=== PATIENT | female | born 1990 | race Native Hawaiian/Other Pacific Islander ===

== ENCOUNTER 2016-03-13 19:41 | Inpatient (IN) | payer MEDICARE, OTHER ==
[2016-03-13] MEDS ORDERED: LIDOCAINE 1% (PF) 10 MG/ML (30 ML SDV) SQ PRN (21:17)
[2016-03-13] MEDS ORDERED: CARBOPROST TROMETHAMINE 250 MCG/ML 1 ML AMP IM PRN (21:17)
[2016-03-13] MEDS ORDERED: METHYLERGONOVINE 0.2 MG/ML 1 ML AMP IM PRN (21:17)
[2016-03-13] MEDS ORDERED: TERBUTALINE 1 MG/ML VIAL SQ PRN (21:17)
[2016-03-13] MEDS ORDERED: OXYTOCIN 10 UNIT/ML 1 ML VIAL IM PRN (21:17)
[2016-03-13] MEDS: LACTATED RINGERS 1,000 ML IV SCH (21:59)
[2016-03-13] MEDS: BUTORPHANOL 1 MG/ML 1 ML VIAL IV PRN (22:04)
[2016-03-13 22:17] VITALS: BMI 48.6
[2016-03-13 22:24] LABS: Basophils # (A) 0.1 k/uL (0-0.2); Basophils % (A) 1 %; CHCM 35.1; Eosinophils # (A) 0.2 k/uL (0-0.7); Eosinophils % (A) 1 %; HCT 41.3 % (34.0-46.0); HDW 3.08; HGB 13.8 gm/dL (11.4-16.0); Luc # (Auto) 0.09; Luc % (Auto) 1; Lymphocytes # (A) 1.9 k/uL (1.0-4.8); Lymphocytes % (A) 14 %; MCH 28.7 pg (25.0-35.0); MCHC 33.4 g/dL (31.0-37.0); MCV 85.9 fL (80.0-100.0); Mean Platelet Volume 8.3; Monocytes # (A) 0.6 k/uL (0-1.0); Monocytes % (A) 5 %; Neutrophils # (A) 10.8 k/uL (1.3-7.7); Neutrophils % (A) 80 %; RBC 4.81 m/uL (3.80-5.40); WBC 13.6 k/uL (3.8-10.6); WBC (Perox) 13.63
[2016-03-14] MEDS: BUTORPHANOL 1 MG/ML 1 ML VIAL IV PRN ×3 (00:06→04:17)
[2016-03-14] MEDS: LACTATED RINGERS 1,000 ML IV SCH (04:16)
--- NOTE | 2016-03-14 05:34 | P.HPOB ---
History of Present Illness H&P Date: 03/14/16 Chief Complaint: Contractions This is a 25-year-old female 1 para 0 at 40 weeks and 5 days with an estimated date of confinement of 03/09/2016, who presented to labor and delivery complaining of contractions that began earlier in the evening and became stronger and more regular. She denied any rupture of membranes. care has been uncomplicated per patient. She has been seeing Dr. Hoffman for her care. labs: GC/chlamydia-negative HIV-nonreactive Blood type-O+ Antibody screen-negative Syphilis antibody-nonreactive Rubella-low positive Random glucose-84 Hepatitis B surface antigen-negative Hemoglobin-14.2 One hour Glucola-117 Group B streptococcus-negative Obstetrical history: This is her first Social history: She lives with her parents and she does have a learning disability. The father the baby is not involved. Review of Systems Gastrointestinal: Reports abdominal pain Genitourinary: Reports pelvic pain, Reports Past Medical History Additional Past Medical History / Comment(s): pt states hx of learning disability, pt father is legal guardian. Pt has hx of scoliosis History of Any Multi-Drug Resistant Organisms: None Reported Past Surgical History: No Surgical Hx Reported Past Anesthesia/Blood Transfusion Reactions: No Reported Reaction Past Psychological History: No Psychological Hx Reported Smoking Status: Current every day smoker Past Alcohol Use History: None Reported Past Drug Use History: None Reported Additional Drug Use History / Comment(s): pt states smokes 6-7 cigaretts per day - Past Family History Father Family Medical History: Diabetes Mellitus, Hypertension Mother Family Medical History: Cancer Medications and Allergies Home Medications Medication Instructions Recorded Confirmed Type Multivitamin [Children's 1 tab PO DAILY 10/18/15 03/13/16 History Multivitamins] Allergies Allergy/AdvReac Type Severity Reaction Status Date / Time No Known Allergies Allergy Verified 03/13/16 20:06 Exam Osteopathic Statement: *. No significant issues noted on an osteopathic structural exam other than those noted in the History and Physical/Consult. - Vital Signs Vital signs: Vital Signs Temp Pulse Resp BP 03/13/16 21:11 97.1 F L 93 18 139/82 Intake and Output 03/13/16 03/13/16 03/14/16 14:59 22:59 06:59 Intake Total 50 Balance 50 Intake: IV 50 Lactated Ringers 1,000 ml 50 @ 125 mls/hr IV .Q8H [facility] Rx#:[id number] Other: Weight 124.738 kg Patient Weight 03/14/16 06:59 Weight 124.738 kg HEENT: Within normal limits Heart: Regular rate and rhythm Lungs: Clear to auscultation bilaterally Abdomen: Cervix: Initially was 2 cm/80%/-2 station. She did make change after one hour to 3 cm. heart tones: Reactive Contractions: Every 1-5 minutes Extremities: Negative Homans Results Result Diagrams: 03/13/16 22:00 Abnormal Lab Results - Last 24 Hours (Table) 03/13/16 Range/Units 22:00 WBC 13.6 H (3.8-10.6) k/uL Neutrophils # 10.8 H (1.3-7.7) k/uL Assessment and Plan (1) Post term over 40 weeks Status: Acute Plan: Admission for active labor. Stadol as needed for pain control. Patient declines epidural. Expectant management.
[2016-03-14] MEDS ORDERED: ACETAMINOPHEN TAB 325 MG TAB PO PRN (08:03)
[2016-03-14] MEDS ORDERED: LANOLIN CREAM 5 GM TUBE TOPICAL PRN (08:03)
[2016-03-14] MEDS ORDERED: ZOLPIDEM 5 MG TAB PO PRN (08:03)
[2016-03-14] MEDS ORDERED: HYDROCORTISONE 2.5% RECTAL CREAM 30 GM TUBE RECTAL PRN (08:03)
[2016-03-14] MEDS ORDERED: diphenhydrAMINE 50 MG CAP PO PRN (08:03)
[2016-03-14] MEDS ORDERED: Acetaminophen-Codeine 300-30mg TAB PO PRN (08:03)
[2016-03-14] MEDS ORDERED: diphenhydrAMINE 50 MG/ML 1 ML VIAL IVP PRN ×2 (08:03)
[2016-03-14] MEDS ORDERED: diphenhydrAMINE 25 MG CAP PO PRN (08:03)
[2016-03-14] MEDS ORDERED: WITCH HAZEL 1 EACH MED..PAD TOPICAL PRN (08:03)
[2016-03-14] MEDS ORDERED: SIMETHICONE 80 MG CHEWABLE PO PRN (08:03)
[2016-03-14] MEDS ORDERED: BENZOCAINE/MENTHOL SPRAY 1 GM/SPRAY AEROSOL TOPICAL PRN (08:03)
--- NOTE | 2016-03-14 08:14 | P.PROBDLV ---
Vaginal Delivery Note - . Vaginal Delivery Note: The patient progressed to complete dilation after artificial rupture membranes with clear fluid noted. She did receive several doses of Stadol while in labor. Once reaching complete dilation, she began pushing. Infant's head came to a crown and then delivered across the perineum with the body following shortly after. Nuchal cord 1 was reduced around the infant with delivery. Nose and mouth were bulb suctioned after delivery. was placed on mother' s abdomen. Cord was clamped and cut and infant was taken to warmer for evaluation. A viable male was noted with scores of 8 at 1 minute and 9 at 5 minutes and weight of 7 lbs. 4 oz. Placenta initially was not ready to separate and therefore inspection of the perineum revealed a second -degree perineal laceration. This area was anesthetized with 1% lidocaine and then sutured with 3-0 and 2-0 Vicryl suture in the usual multilayer fashion. Next after at least 20 minutes the placenta had not , despite uterine massage and gentle traction. A gloved hand was placed into the endometrial cavity and the placenta was manually removed. It was noted to be slightly adherent. It was removed initially and one large piece however there was still some membranes present. Another gloved hand was placed into the endometrial cavity and the membranes were pulled out and a fairly large piece. No further tissue was obtained. Uterus clamped down very well after oxytocin was given and uterine massage was carried out. Estimated blood loss is approximately 200 mL's.
[2016-03-14] MEDS ORDERED: MEASLES-MUMPS-RUBELLA VACC/PF 12,500 UNIT/0.5 ML VIAL SQ ONE (08:38)
[2016-03-14] MEDS: SENNOSIDES-DOCUSATE SODIUM 1 EACH TAB PO SCH ×2 (09:24→19:47)
[2016-03-14] MEDS: IBUPROFEN 600 MG TAB PO PRN ×3 (09:24→23:01)
[2016-03-14] MEDS: MULTIVITAMINS, PEDIATRIC 1 EACH CHEWABLE PO SCH (10:34)
[2016-03-14] MEDS: OXYTOCIN 30 UNITS/500 ML NS 30 UNIT in SALINE 1 500ML.BAG IV SCH ×2 (20:40→20:41)
[2016-03-15] MEDS: Acetaminophen-Codeine 300-30mg TAB PO PRN ×2 (05:03→10:24)
[2016-03-15] MEDS: SENNOSIDES-DOCUSATE SODIUM 1 EACH TAB PO SCH (07:38)
[2016-03-15] MEDS: MULTIVITAMINS, PEDIATRIC 1 EACH CHEWABLE PO SCH (08:22)
[2016-03-15 09:01] VITALS: BP 107/57; PULSE 140; RESP 48; TEMP 98.3
[2016-03-15 09:08] LABS: Basophils # (A) 0.1 k/uL (0-0.2); Basophils % (A) 0 %; CH 29.5; CHCM 33.8; Eosinophils # (A) 0.1 k/uL (0-0.7); Eosinophils % (A) 1 %; HCT 35.1 % (34.0-46.0); HDW 2.94; HGB 11.6 gm/dL (11.4-16.0); Luc # (Auto) 0.14; Luc % (Auto) 1; Lymphocytes # (A) 2.5 k/uL (1.0-4.8); Lymphocytes % (A) 17 %; MCH 28.9 pg (25.0-35.0); MCV 87.8 fL (80.0-100.0); Mean Platelet Volume 7.5; Monocytes # (A) 0.6 k/uL (0-1.0); Monocytes % (A) 4 %; Neutrophils % (A) 77 %; RBC 3.99 m/uL (3.80-5.40); RDW 14.2 % (11.5-15.5); WBC 14.4 k/uL (3.8-10.6); WBC (Perox) 15.29
--- NOTE | 2016-03-15 11:14 | P.DS ---
Providers Date of admission: 03/13/16 21:06 Expected date of discharge: 03/15/16 Attending physician: Yana Hoffman Primary care physician: Stated None - Discharge Diagnosis(es) (1) Post term over 40 weeks Current Visit: Yes Status: Acute Hospital Course: This is a 25-year-old female 1 para 0 at 40-5/7 weeks who presented for active labor. She underwent oxytocin augmentation of labor and artificial rupture membranes with clear fluid noted. She delivered vaginally a viable male on 03/14/2016 with scores of 8 at 1 minute and 9 at 5 minutes and weight of 7 lbs. 4 oz. Her course has been uncompensated. She is both breast and bottlefeeding. Lochia is decreasing. Vital signs are stable. Abdomen is soft with fundus firm and nontender. Extremities show negative Homans. Impression is status post vaginal delivery day #1. Plan is to discharge home today. She will be given prescriptions for ibuprofen and Tylenol 3. She will also be given a prescription for breast pump. She is advised to follow up with Dr. Hoffman in 6 weeks in the office. Routine instructions are given. She is advised to call the office if she has any further questions or concerns prior to her appointment time. Procedures: Oxytocin augmentation of labor Spontaneous vaginal delivery of a viable male on 03/14/2016 Patient Condition at Discharge: Stable Plan - Discharge Summary New Discharge Prescriptions: Acetaminophen-Codeine 300-30mg [Tylenol w/codeine #3] 1 each PO Q4HR PRN #30 tab PRN Reason: Mild Pain exceeding Tylenol Ibuprofen [Motrin] 600 mg PO Q6HR PRN #60 tab PRN Reason: Mild Pain Or Fever >= 100.5 Discharge Medication List Multivitamin [Children's Multivitamins] 1 tab PO DAILY 10/18/15 [History] Acetaminophen-Codeine 300-30mg [Tylenol w/codeine #3] 1 each PO Q4HR PRN #30 tab 03/15/16 [Rx] Ibuprofen [Motrin] 600 mg PO Q6HR PRN #60 tab 03/15/16 [Rx] Follow up Appointment(s)/Referral(s): Yana Hoffman DO [Doctor of Osteopathic Medicine] - 6 Weeks Activity/Diet/Wound Care/Special Instructions: Instructions 1. Do not begin any exercise program for 3 weeks. 2. Do not resume sexual relations for 3 weeks or longer if uncomfortable. 3. You may take tub baths or showers at any time. 4. You may use tampons if desired after 3 weeks. 5. Keep the area of episiotomy (stitches) clean and dry. 6. If you are not nursing, wear a good fitting, supportive bra during the day and limit fluid intake for at least 1 week to prevent breast engorgement. 7. Call the office, [phone], within the next week to make appointment for your 6 week checkup if it has not already been made. 8. Report any of the following occurrences to the doctor promptly: a. Heavy, excessive bleeding b. Chills, fever c. Burning or frequency of urination d. Pain or redness and breasts if nursing e. Increasing pain or swelling in episiotomy (stitches). In addition to the above instructions, the following additional should be followed: 1. No heavy lifting or straining (exercising) until after 6 week checkup. 2. Keep abdominal incision clean and dry: You may wear a dressing if more comfortable. 3. Make office appointment for 10 days after going home or as instructed by her doctor. Discharge Disposition: HOME SELF-CARE
== END 2016-03-15 12:20 | disposition home or self-care (01) | DRG 775 ==
LOC: FBPOP 19:41 → 4FBP 21:06
PROVIDERS: ADMIT Obstetrics & Gynecology; ATTEND Obstetrics & Gynecology
PROC: 10E0XZZ Delivery of Products of Conception, External Approach (ICD-10-PCS; principal; 2016-03-14)
PROC: 0KQM0ZZ Repair Perineum Muscle, Open Approach (ICD-10-PCS; 2016-03-14)
PROC: 10907ZC Drainage of Amniotic Fluid, Therapeutic from Products of Conception, Via Natural or Artificial Opening (ICD-10-PCS; 2016-03-14)
PROC: 3E0134Z Introduction of Serum, Toxoid and Vaccine into Subcutaneous Tissue, Percutaneous Approach (ICD-10-PCS; 2016-03-14)
DX: O70.1 Second degree perineal laceration during delivery (principal); Z37.0 Single live birth; M41.9 Scoliosis, unspecified; O26.893 Other specified pregnancy related conditions, third trimester; F17.210 Nicotine dependence, cigarettes, uncomplicated; O48.0 Post-term pregnancy; O99.344 Other mental disorders complicating childbirth; F81.9 Developmental disorder of scholastic skills, unspecified; O43.893 Other placental disorders, third trimester; O69.81X0 Labor and delivery complicated by cord around neck, without compression, not applicable or unspecified; O99.334 Smoking (tobacco) complicating childbirth; Z82.49 Family history of ischemic heart disease and other diseases of the circulatory system; Z83.3 Family history of diabetes mellitus; Z3A.40 40 weeks gestation of pregnancy; Z80.9 Family history of malignant neoplasm, unspecified; Z23 Encounter for immunization
CPT/HCPCS: 59025; 85025; 88307; 90707; 99213

== ENCOUNTER → 2017-06-29 | Outpatient (CLI) | payer MEDICARE, OTHER ==
[2017-06-29 10:36] LABS: HCT 39.8 % (34.0-46.0); HGB 13.2 gm/dL (11.4-16.0); MCH 28.7 pg (25.0-35.0); MCHC 33.3 g/dL (31.0-37.0); MCV 86.3 fL (80.0-100.0); Mean Platelet Volume 8.3; Platelet Count 234 k/uL (150-450); RBC 4.61 m/uL (3.80-5.40); RDW 13.5 % (11.5-15.5); WBC 8.4 k/uL (3.8-10.6)
[2017-06-29 10:48] LABS: Glucose 69 mg/dL (74-99)
--- NOTE | 2017-06-29 12:19 | US ---
EXAMINATION TYPE: Ultrasound OB <= 14 week fetus DATE OF EXAM: 06/29/2017 COMPARISON: NONE CLINICAL HISTORY: 27-year-old female Z36 confirm dates; , smoker EXAM PERFORMED: Transabdominal (TA) FINDINGS: EXAM MEASUREMENTS: GESTATIONAL AGE / DATING Physician Established: Not yet established Dates by LMP: (11 weeks/3 days) EDC: 01/15/2018 Dates by First Scan: No previous. This is first scan Dates by Current Scan for: (11 weeks/6 days) EDC: 01/12/2018 MATERNAL ANATOMY Uterus: 12.1 x 7.9 x 8.1cm Right Ovary: 2.6 x 1.6 x 1.3cm Left Ovary: 3.9 x 1.8 x 1.4cm Post CDS / Adnexa: wnl Presence of free fluid: no Presence of corpus luteal cyst: not identified Presence of subchorionic bleed: no GESTATION / SURVEY CRL: 5.1cm (11 weeks/6 days) Yolk Sac (normal less than 6mm): not seen Heart Rate: 156 bpm Rhythm: normal IUP: Viable IUP Nuchal Translucency 10-14wks (normal less than 3mm): 1.6mm Date of LMP: 04/10/2017 Beta HcG (if available): NA Safety Sealer notes: Single, live, IUP,11 weeks/6 days, EDC: 01/12/2018, HR 156bpm. IMPRESSION: 1. Single live intrauterine with estimated gestational age of 11 weeks 3 days by LMP. Curre nt ultrasound biometry is slightly larger but concordant (11 weeks 6 days). 2. Complete survey recommended at 18-20 weeks.
[2017-06-29 18:10] LABS: HIV AB P24 Non-Reactive (Non-Reactive); HIV P24 AG Non-Reactive (Non-Reactive)
== END | disposition home or self-care (01) ==
LOC: RADUSWWP 09:53
PROVIDERS: ATTEND Obstetrics & Gynecology
DX: O26.811 Pregnancy related exhaustion and fatigue, first trimester (principal); Z3A.11 11 weeks gestation of pregnancy
CPT/HCPCS: 36415; 76801; 76813; 82565; 82947; 85027; 86762; 86780; 86850; 86900; 86901; 87340; 87390

== ENCOUNTER → 2017-08-23 | Outpatient (CLI) | payer MEDICARE, OTHER ==
--- NOTE | 2017-08-23 13:12 | US ---
EXAMINATION TYPE: US OB anatomy transabd DATE OF EXAM: 08/23/2017 COMPARISON: US HISTORY: 27-year-old female O36.62X0 Large for Dates second trimester LGA, anatomy scan TECHNIQUE: Transabdominal (TA) FINDINGS: EXAM MEASUREMENTS: GESTATIONAL AGE / DATING Physician Established: (19 weeks/5 days) EDC: 01/12/2018 Dates by LMP: (19 weeks/2 days) EDC: 01/15/2018 Dates by First Scan: (19 weeks/5 days) EDC: 01/12/2018 Dates by Current Scan for: (19 weeks/4 days) EDC: 01/13/2018 SURVEY IUP: Single PLACENTA: Anterior PREVIA: No previa but slightly low lying measuring 4 cm from the internal cervical os. RUTH: 13.9 cm Normal CERVICAL LENGTH (transabdominal: norm > 3.0cm): 3.5 cm BIOMETRY PRESENTATION: Breech BPD: 4.6 cm 19 weeks / 6 days HC: 17.4 cm 19 weeks / 6 days AC: 14.4 cm 19 weeks / 5 days FL: 3.2 cm 19 weeks / 6 days ESTIMATED WEIGHT IN GRAMS: 312 grams ESTIMATED WEIGHT IN LBS/OZ: 0 lbs. 11 oz. WEIGHT PERCENTAGE BASED ON ESTABLISHED DATE: 48.7 % HC/AC: 1.21 Normal FL/AC: 22 Normal HEART RATE: 141 bpm RHYTHM: Normal ANATOMY SEEN (within normal limits): Lateral Vent (< 1 cm) 0.7 cm Cisterna Magna (< 1.1 cm) 0.2 cm Nuchal Fold (< 0.6 cm) 0.3 cm Cerebellum (varies with age) 2.1 cm Choroid Plexus (bilateral) Midline Falx Cavus Septi Pellucidi Outflow tracts: RVOT Stomach Diaphragm Kidneys (bilateral) Bladder Three Vessel Cord Arms (bilateral) Legs (bilateral) ANATOMY NOT SEEN: Four Chamber Heart Longitudinal Spine Transverse Spine Nose / Lips Situs Outflow tracts: LVOT Cord Insert MATERNAL WALL MEASUREMENT: 3.8 cm from skin to anterior uterine wall (if exam limited due to body kirkland bitus). Brand Ambassador Promotional Model notes:Single, viable IUP/ Some anatomical structures not visualized due to pt obesity a nd position/ Visualized anatomy appears wnl IMPRESSION: 1. Single live intrauterine with established gestational age of 19 weeks 5 days by prior da ting scan. Current ultrasound biometry is concordant (19 weeks 4 days) placing the child at the 49th percentile for weight. 2. A number of structures on the survey were suboptimally visualized (four-chamber heart, spine , nose/lips, situs, LVOT, and cord insertion). Patient can be brought back for a rescan in one to 2 w eeks if desired. 3. The remaining structures appear normal. 4. Slightly low-lying anterior placenta measuring 4 cm from the internal cervical os.
== END | disposition home or self-care (01) ==
LOC: RADUSWWP 10:50
PROVIDERS: ATTEND Obstetrics & Gynecology
DX: O36.62X0 Maternal care for excessive fetal growth, second trimester, not applicable or unspecified (principal); Z3A.19 19 weeks gestation of pregnancy
CPT/HCPCS: 76811

== ENCOUNTER → 2017-08-24 | Outpatient (CLI) | payer MEDICARE, OTHER ==
--- NOTE | 2017-08-25 13:24 | MR ---
EXAMINATION TYPE: MR cervical spine wo con DATE OF EXAM: 08/24/2017 COMPARISON: None HISTORY: Cervicalgia / Low back pain TECHNIQUE: Multiplanar, multisequence images of the cervical spine were acquired. C2-C3: No evidence for degenerative disc disease. No disc bulge/herniation or protrusion. No Canal stenosis. Foramina are patent bilaterally. C3-C4: No significant spinal stenosis or sizable disc herniation, no foraminal encroachment. C4-C5: Posterior extension of endplate disc complex causes minimal anterior mass effect on the thecal sac, there may be contact with the anterior cervical cord, no significant foraminal encroachment or central stenosis. C5-C6: Posterior extension of endplate disc complex may contact the anterior cervical cord, there is no significant central stenosis or foraminal encroachment. C6-C7: No evidence for degenerative disc disease. No disc bulge/herniation or protrusion. No Canal stenosis. Foramina are patent bilaterally. C7-T1: No evidence for degenerative disc disease. No disc bulge/herniation or protrusion. No Canal stenosis. Foramina are patent bilaterally. Cervical segments are intact. There is normal alignment. Cervical spinal cord is of normal signal. Craniovertebral junction relationships are within normal limits. IMPRESSION: No significant central stenosis or foraminal encroachment, no significant disc herniation.
== END | disposition home or self-care (01) ==
LOC: RADMRIMAIN 10:26
PROVIDERS: ATTEND Psychiatry & Neurology Pain Medicine
DX: M54.2 Cervicalgia (principal); M54.5 Low back pain
CPT/HCPCS: 72141

== ENCOUNTER → 2017-09-06 | Outpatient (CLI) | payer MEDICARE, OTHER ==
--- NOTE | 2017-09-06 13:25 | US ---
EXAMINATION TYPE: US OB Call Back DATE OF EXAM: 09/06/2017 COMPARISON: survey 08/23/2017 CLINICAL HISTORY: 27-year-old female O36.62X0 Large for Dates second trimester. TECHNIQUE: Transabdominal scanning. FINDINGS: GESTATIONAL AGE / DATING Dates by Initial Survey Scan: EDC: 01/13/2018 Physician Established: EDC: 01/12/2018 HEART RATE: 155 bpm RHYTHM: Normal ANATOMY SEEN (second anatomic survey look): Four Chamber Heart: Normal Situs: Normal Nose / Lips: Within normal limits Cord Insert : Slightly crowded but grossly normal Longitudinal Spine: (Cervical, thoracic, and lumbar) Transverse Spine: ANATOMY SUBOPTIMALLY VISUALIZED: LVOT Longitudinal sacral spine: The skin line could not be delineated. Placenta is anterior. The caudal margin measures 4 cm from the internal cervical os. IMPRESSION: 1. A couple structures remain suboptimally visualized including the LVOT and longitudinal sacral spin e. 2. The remaining structures appear normal.
== END | disposition home or self-care (01) ==
LOC: RADUSWWP 09:47
PROVIDERS: ATTEND Obstetrics & Gynecology
DX: Z53.9 Procedure and treatment not carried out, unspecified reason (principal)

== ENCOUNTER → 2017-10-08 | Outpatient (CLI) | payer MEDICARE, OTHER ==
[2017-10-08 10:56] LABS: HCT 37.1 % (34.0-46.0); HGB 12.5 gm/dL (11.4-16.0); MCH 29.4 pg (25.0-35.0); MCHC 33.8 g/dL (31.0-37.0); MCV 86.8 fL (80.0-100.0); Mean Platelet Volume 7.7; Platelet Count 219 k/uL (150-450); RBC 4.27 m/uL (3.80-5.40); RDW 14.3 % (11.5-15.5); WBC 10.1 k/uL (3.8-10.6)
== END | disposition home or self-care (01) ==
LOC: LABWHC1 09:41
PROVIDERS: ATTEND Obstetrics & Gynecology
DX: Z34.82 Encounter for supervision of other normal pregnancy, second trimester (principal); Z3A.00 Weeks of gestation of pregnancy not specified
CPT/HCPCS: 36415; 82950; 85027

== ENCOUNTER 2018-01-01 17:20 | Outpatient (CLI) | payer MEDICARE, OTHER ==
[2018-01-01 18:57] VITALS: BP 116/71; PULSE 106; RESP 18; TEMP 36.2
--- NOTE | 2018-01-03 07:39 | P.MSEPDOC ---
Presenting Problems - Arrival Data Date of Arrival on Unit: 01/01/18 Time of Arrival on Unit: 17:20 Mode of Transport: Ambulatory - Complaint OB-Reason for Admission/Chief Complaint: Other Comment: contractions and lost mucous plug Medical History - Information : 2 Para: 1 Term: 1 : 0 Abortions: Spontaneous or Elective: 0 Number of Living Children: 1 - Gestational Age Gestational Age by XENIA (wks/days): 38 Weeks and 0 Days - History Complications: Smoker Review of Systems - Review of Systems Constitutional: No problems Breast: No problems ENT: No problems Cardiovascular: No problems Respiratory: No problems Gastrointestinal: No problems Genitourinary: No problems Musculoskeletal: No problems Neurological: No problems Skin: No problems Vital Signs - Temperature Temperature: 36.2 F - Pulse Right Sitting Brachial Pulse Rate: 106 Pulse Assessment Method: Automatic Cuff - Respirations Respiratory Rate: 18 Oxygen Delivery Method: Room Air O2 Sat by Pulse Oximetry: 96 - Blood Pressure Right Arm Sitting Blood Pressure: 116/71 Blood Pressure Mean: 86 Blood Pressure Source: Automatic Cuff Medical Screen Scoring (Pre) - Cervical Exam Dilation: 1-3 cm = 1 Effacement: More than 50% = 2 Membranes: Intact - Uterine Contractions Frequency: > 5 minutes apart = 1 Duration: N/A Intensity: N/A - Maternal Vital Signs Maternal Temperature: N/A Maternal Blood Pressure: N/A Signs of Preeclampsia: N/A Maternal Respirations: N/A - Pain Assessment Pain Scale Used: Numeric (1 - 10) Pain Intensity: 7 Pain Management Goal: 3 Pain Description: Cramping - Maternal Trauma Maternal Trauma: N/A - Assessment Baseline FHR: 125 Heart Rate - NICHD Category: Category I (Normal) = 0 NST: Reactive Position: N/A Station: N/A - Total Score Total Score (Pre): 4 - Level of Risk Level of Risk: Low (0-5) Physician Notification (Pre) - Physician Notified Physician Notified Date: 01/01/18 Physician Notified Time: 18:17 Physician/Practitioner Notifed:: Dr Henry Spoke With: Dr Henry New Order Received: Yes - Notification Comment Comment: Discharged home after no cervical change and reactive NST. Follow up with Dr Dalton Le as scheduled. Disposition - Disposition OB Disposition: Discharge to home Discharge Date: 01/01/18 Discharge Time: 18:44 I agree with the RN Medical Screening Exam: Yes Risk & Benefit of care provided described in d/c instruction: Yes Diagnosis: FALSE LABOR AT OR AFTER 37 COMPLETED WEEKS OF GESTATION
== END 2018-01-01 18:46 | disposition home or self-care (01) ==
LOC: FBPOP 17:20
PROVIDERS: ATTEND Obstetrics & Gynecology
DX: O47.1 False labor at or after 37 completed weeks of gestation (principal); O99.333 Smoking (tobacco) complicating pregnancy, third trimester; Z3A.38 38 weeks gestation of pregnancy
CPT/HCPCS: 59025; G0463; 99213

== ENCOUNTER 2018-01-04 00:11 | Outpatient (CLI) | payer MEDICARE, OTHER ==
[2018-01-04 01:17] VITALS: BP 122/62; PULSE 85; RESP 16; TEMP 96.7
--- NOTE | 2018-01-04 08:11 | P.MSEPDOC ---
Presenting Problems - Arrival Data Date of Arrival on Unit: 01/04/18 Time of Arrival on Unit: 00:11 Mode of Transport: Wheelchair - Complaint OB-Reason for Admission/Chief Complaint: Vaginal Bleeding Medical History - Information : 2 Para: 1 Term: 1 : 0 Abortions: Spontaneous or Elective: 0 Number of Living Children: 1 - Gestational Age Gestational Age by XENIA (wks/days): 38 Weeks and 5 Days - History Complications: Smoker Review of Systems - Review of Systems Constitutional: No problems Breast: No problems ENT: No problems Cardiovascular: No problems Respiratory: No problems Gastrointestinal: No problems Genitourinary: No problems Musculoskeletal: No problems Neurological: No problems Skin: No problems Vital Signs - Temperature Temperature: 96.7 F Temperature Source: Temporal Artery Scan - Pulse Right Brachial Pulse Rate: 85 Pulse Assessment Method: Automatic Cuff - Respirations Respiratory Rate: 16 Oxygen Delivery Method: Room Air O2 Sat by Pulse Oximetry: 98 - Blood Pressure Right Arm Blood Pressure: 122/62 Blood Pressure Mean: 82 Blood Pressure Source: Automatic Cuff Medical Screen Scoring (Pre) - Cervical Exam Dilation: 1-3 cm = 1 Membranes: Intact - Uterine Contractions Frequency: N/A Duration: N/A Intensity: N/A - Maternal Vital Signs Maternal Temperature: N/A Maternal Blood Pressure: N/A Signs of Preeclampsia: N/A - Pain Assessment Pain Location and Character: Lower, Abdomen Pain Scale Used: Numeric (1 - 10) Pain Intensity: 3 Pain Description: *Acute, Sore Pain Frequency: Intermittent Pain Duration Units: Minutes Pain Behavior: None Exhibited - Assessment Baseline FHR: 125 Heart Rate - NICHD Category: Category I (Normal) = 0 NST: Reactive Position: N/A Station: N/A - Total Score Total Score (Pre): 1 - Level of Risk Level of Risk: Low (0-5) Physician Notification (Pre) - Physician Notified Physician Notified Date: 01/04/18 Physician Notified Time: 01:04 Physician/Practitioner Notifed:: Dr. Thomas Spoke With: Dr. Thomas New Order Received: Yes - Notification Comment Comment: Dr. Thomas called and given report on pt in tr. Pt c/o. VS wnl. Reactive nst. Vag exam of /-3. Orders recieved to d/c pt to home. Disposition - Disposition OB Disposition: Discharge to home Discharge Date: 01/04/18 Discharge Time: 01:10 I agree with the RN Medical Screening Exam: Yes Risk & Benefit of care provided described in d/c instruction: Yes Diagnosis: SPOTTING COMPLICATING , THIRD TRIMESTER
== END 2018-01-04 01:10 | disposition home or self-care (01) ==
LOC: FBPOP 00:11
PROVIDERS: ATTEND Obstetrics & Gynecology
DX: O26.853 Spotting complicating pregnancy, third trimester (principal); Z3A.38 38 weeks gestation of pregnancy
CPT/HCPCS: 59025; G0463; 99213

== ENCOUNTER 2018-01-10 06:00 | Inpatient (IN) | payer MEDICARE, OTHER ==
[2018-01-10] MEDS ORDERED: TERBUTALINE 1 MG/ML VIAL SQ PRN (06:20)
[2018-01-10] MEDS ORDERED: METHYLERGONOVINE 0.2 MG/ML 1 ML AMP IM PRN (06:20)
[2018-01-10] MEDS ORDERED: OXYTOCIN 10 UNIT/ML 1 ML VIAL IM PRN (06:20)
[2018-01-10] MEDS ORDERED: LIDOCAINE 0.5% (PF) 5 MG/ML (50 ML SDV) SQ PRN (06:20)
[2018-01-10] MEDS ORDERED: CARBOPROST TROMETHAMINE 250 MCG/ML 1 ML AMP IM PRN (06:20)
[2018-01-10] MEDS ORDERED: OXYTOCIN 20 UNITS/1000 ML NS 1,000 ML IV SCH ×2 (06:30→13:00)
[2018-01-10] MEDS ORDERED: LACTATED RINGERS 1,000 ML IV SCH (06:30)
[2018-01-10 06:31] VITALS: BMI 46.8
[2018-01-10 06:51] LABS: Basophils # (A) 0.1 k/uL (0-0.2); Basophils % (A) 0 %; Eosinophils # (A) 0.2 k/uL (0-0.7); Eosinophils % (A) 2 %; HGB 12.7 gm/dL (11.4-16.0); Lymphocytes # (A) 2.5 k/uL (1.0-4.8); Lymphocytes % (A) 24 %; MCH 29.7 pg (25.0-35.0); MCHC 34.4 g/dL (31.0-37.0); MCV 86.2 fL (80.0-100.0); Mean Platelet Volume 8.2; Monocytes # (A) 0.5 k/uL (0-1.0); Monocytes % (A) 5 %; Neutrophils # (A) 7.1 k/uL (1.3-7.7); Neutrophils % (A) 68 %; Platelet Count 230 k/uL (150-450); RBC 4.29 m/uL (3.80-5.40); RDW 14.5 % (11.5-15.5); WBC 10.5 k/uL (3.8-10.6)
[2018-01-10] MEDS ORDERED: BUTORPHANOL 1 MG/ML 1 ML VIAL IV PRN (11:06)
[2018-01-10] MEDS ORDERED: HYDROCORTISONE 2.5% RECTAL CREAM 30 GM TUBE RECTAL PRN (12:48)
[2018-01-10] MEDS ORDERED: SIMETHICONE 80 MG CHEWABLE PO PRN (12:48)
[2018-01-10] MEDS ORDERED: diphenhydrAMINE 25 MG CAP PO PRN (12:48)
[2018-01-10] MEDS ORDERED: ZOLPIDEM 5 MG TAB PO PRN (12:48)
[2018-01-10] MEDS ORDERED: LANOLIN CREAM 5 GM TUBE TOPICAL PRN (12:48)
[2018-01-10] MEDS ORDERED: WITCH HAZEL 1 EACH MED..PAD TOPICAL PRN (12:48)
[2018-01-10] MEDS ORDERED: BENZOCAINE/MENTHOL SPRAY 1 GM/SPRAY AEROSOL TOPICAL PRN (12:48)
[2018-01-10] MEDS ORDERED: diphenhydrAMINE 50 MG CAP PO PRN (12:48)
[2018-01-10] MEDS ORDERED: diphenhydrAMINE 50 MG/ML 1 ML VIAL IVP PRN ×2 (12:48)
--- NOTE | 2018-01-10 12:54 | P.HPOB ---
History of Present Illness H&P Date: 01/10/18 Chief Complaint: Induction of Labor 27 year old presents at 39 weeks and 2 days for induction of labor. Her cervix is 3 cm dilated, 70% effaced, and -3 station. She is jia irregularly. heart tones 130 135 with moderate variability and reactive. Review of Systems All systems: negative Constitutional: Denies chills, Denies fever Eyes: denies blurred vision, denies pain Ears, nose, mouth and throat: Denies headache, Denies sore throat Cardiovascular: Denies chest pain, Denies shortness of breath Respiratory: Denies cough Gastrointestinal: Denies abdominal pain, Denies diarrhea, Denies nausea, Denies vomiting Genitourinary: Denies dysuria, Denies hematuria Musculoskeletal: Denies myalgias Integumentary: Denies pruritus, Denies rash Neurological: Denies numbness, Denies weakness Psychiatric: Denies anxiety, Denies depression Endocrine: Denies fatigue, Denies weight change Past Medical History Past Medical History: No Reported History Additional Past Medical History / Comment(s): pt states hx of learning disability, pt father is legal guardian. Pt has hx of scoliosis. Obstetrics history: She has had one vaginal delivery. This is her second . She' s had care with me since the first trimester. Blood type is O+, and it was negative, rubella immune, hepatitis B negative, HIV nonreactive, GBS negative. History of Any Multi-Drug Resistant Organisms: None Reported Past Surgical History: No Surgical Hx Reported Past Anesthesia/Blood Transfusion Reactions: No Reported Reaction Past Psychological History: No Psychological Hx Reported Smoking Status: Current every day smoker Past Alcohol Use History: None Reported Past Drug Use History: None Reported Additional Drug Use History / Comment(s): pt states smokes 6-7 cigaretts per day - Past Family History Father Family Medical History: Diabetes Mellitus, Hypertension Mother Family Medical History: Cancer Medications and Allergies Home Medications Medication Instructions Recorded Confirmed Type Multivitamin [Children's 1 tab PO DAILY 10/18/15 01/10/18 History Multivitamins] Famotidine [Pepcid] 20 mg PO DAILY 01/10/18 01/10/18 History Allergies Allergy/AdvReac Type Severity Reaction Status Date / Time No Known Allergies Allergy Verified 01/10/18 06:16 Exam Osteopathic Statement: *. No significant issues noted on an osteopathic structural exam other than those noted in the History and Physical/Consult. Vital Signs Temp Pulse Resp BP Pulse Ox 01/10/18 06:27 97 F L 91 15 119/70 98 Intake and Output 01/09/18 01/10/18 01/10/18 22:59 06:59 14:59 Other: Weight 123.831 kg Heart: Regular rate and rhythm Lungs: Clear to auscultation bilaterally Abdomen: Soft, nontender Extremities: Negative Homans sign Results Result Diagrams: 01/10/18 06:19 Assessment and Plan (1) Normal labor Current Visit: Yes Status: Acute Code(s): O80 - ENCOUNTER FOR FULL-TERM UNCOMPLICATED DELIVERY; Z37.9 - OUTCOME OF DELIVERY, UNSPECIFIED SNOMED Code(s ): 77264001 Plan: 1. Induction of labor with amniotomy and Pitocin 2. Anticipate normal vaginal delivery
--- NOTE | 2018-01-10 12:58 | P.PROBDLV ---
Vaginal Delivery Note - . Vaginal Delivery Note: 27-year-old presents at 39 weeks and 2 days for induction of labor. Her cervix is 3 cm dilated, 70% effaced, and -3 station. She was jia irregularly. heart tones 130-135 with moderate variability and reactive. Amniotomy performed at 7:49 AM, clear fluid noted. I was called to the room at 12:13 PM when the patient had a very strong urge to push. She was about 97 m dilated but pushed right through it, delivered a viable male infant over intact perineum at 12:29 PM. Head delivered OA, double nuchal cord easily reduced, anterior shoulder delivered gentle downward guidance followed by posterior shoulder and rest of body. Nose and mouth bulb suctioned, cord clamped and cut, placed on mother's abdomen. Apgars 9, 9, weight 7 lbs. 15 oz. Placenta delivered spontaneously, intact with three-vessel cord at 12: 32 PM. Vagina, cervix, perineum inspected. Survey midline laceration was repaired with 3-0 Vicryl. Estimated blood loss 200 mL. Mother and baby in stable condition.
[2018-01-10] MEDS: IBUPROFEN 600 MG TAB PO PRN ×2 (13:00→22:25)
[2018-01-10] MEDS: ACETAMINOPHEN TAB 325 MG TAB PO PRN (16:18)
[2018-01-10] MEDS: SENNOSIDES-DOCUSATE SODIUM 1 EACH TAB PO SCH (20:37)
--- NOTE | 2018-01-11 07:16 | P.DS ---
Providers Date of admission: 01/10/18 06:02 Expected date of discharge: 01/11/18 Attending physician: Yana Hoffman Primary care physician: Stated None - Discharge Diagnosis(es) (1) Normal labor Current Visit: Yes Status: Resolved (2) Normal vaginal delivery Current Visit: Yes Status: Acute Hospital Course: Patient presented for induction of labor. She underwent a normal vaginal delivery. Her course was uncomplicated. She'll be discharged home day #1 in stable condition to follow-up with me in 6 weeks. Plan - Discharge Summary New Discharge Prescriptions: New Ibuprofen [Motrin] 600 mg PO Q6HR PRN #30 tab PRN Reason: Mild Pain Or Fever >= 100.5 No Action Multivitamin [Children's Multivitamins] 1 tab PO DAILY Famotidine [Pepcid] 20 mg PO DAILY Discharge Medication List Multivitamin [Children's Multivitamins] 1 tab PO DAILY 10/18/15 [History] Famotidine [Pepcid] 20 mg PO DAILY 01/10/18 [History] Ibuprofen [Motrin] 600 mg PO Q6HR PRN #30 tab 01/11/18 [Rx] Follow up Appointment(s)/Referral(s): Yana Hoffman DO [Doctor of Osteopathic Medicine] - 6 Weeks Discharge Disposition: HOME SELF-CARE
[2018-01-11 08:58] LABS: Basophils % (A) 0 %; Eosinophils # (A) 0.1 k/uL (0-0.7); Eosinophils % (A) 1 %; HCT 35.7 % (34.0-46.0); HGB 11.9 gm/dL (11.4-16.0); Lymphocytes # (A) 1.7 k/uL (1.0-4.8); Lymphocytes % (A) 17 %; MCH 29.1 pg (25.0-35.0); MCHC 33.3 g/dL (31.0-37.0); MCV 87.6 fL (80.0-100.0); Mean Platelet Volume 8.3; Monocytes # (A) 0.3 k/uL (0-1.0); Monocytes % (A) 3 %; Neutrophils # (A) 8.1 k/uL (1.3-7.7); Neutrophils % (A) 79 %; Platelet Count 198 k/uL (150-450); RBC 4.08 m/uL (3.80-5.40); RDW 14.6 % (11.5-15.5); WBC 10.2 k/uL (3.8-10.6)
[2018-01-11] MEDS: SENNOSIDES-DOCUSATE SODIUM 1 EACH TAB PO SCH (09:23)
[2018-01-11 09:26] VITALS: BP 108/67; PULSE 61; RESP 18; TEMP 97.4
[2018-01-11] MEDS: ACETAMINOPHEN TAB 325 MG TAB PO PRN (10:09)
== END 2018-01-11 13:30 | disposition home or self-care (01) | DRG 807 ==
LOC: 4FBP 06:02
PROVIDERS: ADMIT Obstetrics & Gynecology; ATTEND Obstetrics & Gynecology
PROC: 10907ZC Drainage of Amniotic Fluid, Therapeutic from Products of Conception, Via Natural or Artificial Opening (ICD-10-PCS; principal; 2018-01-10)
PROC: 10E0XZZ Delivery of Products of Conception, External Approach (ICD-10-PCS; principal; 2018-01-10)
PROC: 3E033VJ Introduction of Other Hormone into Peripheral Vein, Percutaneous Approach (ICD-10-PCS; principal; 2018-01-10)
PROC: 0HQ9XZZ Repair Perineum Skin, External Approach (ICD-10-PCS; principal; 2018-01-10)
DX: O99.334 Smoking (tobacco) complicating childbirth (principal); Z37.0 Single live birth; Z3A.39 39 weeks gestation of pregnancy; F81.9 Developmental disorder of scholastic skills, unspecified; O99.344 Other mental disorders complicating childbirth; F17.200 Nicotine dependence, unspecified, uncomplicated; M41.9 Scoliosis, unspecified; Z82.49 Family history of ischemic heart disease and other diseases of the circulatory system; Z83.3 Family history of diabetes mellitus; O69.81X0 Labor and delivery complicated by cord around neck, without compression, not applicable or unspecified; O70.0 First degree perineal laceration during delivery
CPT/HCPCS: 85025; 86850; 86900; 86901